=== PATIENT | male | born 1945 | race Caucasian/White ===

== ENCOUNTER → 2025-01-09 | Outpatient (BNVA) | payer OTHER, SELFPAY | END | disposition home or self-care (01) | PROVIDERS: PCP Family Medicine; Referring Provider Family Medicine; Visit Provider Urology | DX: N40.1 Benign prostatic hyperplasia with lower urinary tract symptoms (principal); N13.8 Other obstructive and reflux uropathy; R97.20 Elevated prostate specific antigen [PSA]; I10 Essential (primary) hypertension; E78.5 Hyperlipidemia, unspecified; E11.40 Type 2 diabetes mellitus with diabetic neuropathy, unspecified; J44.9 Chronic obstructive pulmonary disease, unspecified; Z95.2 Presence of prosthetic heart valve; Z80.42 Family history of malignant neoplasm of prostate; E66.9 Obesity, unspecified; Z68.38 Body mass index [BMI] 38.0-38.9, adult | CPT/HCPCS: 81003; 99202; G0463 ==

== ENCOUNTER 2025-04-01 09:47 | Outpatient (RCR) | payer OTHER, SELFPAY ==
--- NOTE | 2025-04-01 11:49 | CTCCONSULT_ITS ---
[facility] [address] [place], [place] [address] Consultation Note Date: 04/01/2025 MR#: [id number] Name: DANIELLE JOYNER : 1945 Dx: C61 Malignant neoplasm of prostate History of Present Illness: 80-year-old gentleman with elevated PSA 67.1 on 01/14/2025. Underwent biopsy at [facility] revealing prostate adenocarcinoma Group 2 and 3 Christian 7(3+4) (4+3) and Group 4 Christian score 8 (4+4) involving various areas of targeted left prostate March 12, 2025.. MRI 02/21/2025 suggested PI-RADS 5 left peripheral zone of prostate along with multiple bone lesions including right ischium and left innominate bone. Patient has PET scan ordered for staging pending. Patient is now referred to the cancer treatment center. Past Medical History: History of bladder infection COPD diabetes high blood pressure CVA skin cancers Meds. 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 Jg Faith. Social drinker non-smoker Family history. Maternal grandmother had breast cancer 1 brother had prostate cancer in his 80s. Review of Systems: Has had hayfever leaky urine memory loss nocturia shortness of breath there is mild exertion sleep problem Physical Exam: General: Well-appearing gentleman in no acute distress HEENT: Atraumatic normocephalic extraocular is intact no oral lesions no cervical or supraclavicular adenopathy CV: Chest clear to auscultation heart regular rate and rhythm ABD: Soft no urinary tenderness EXT: No signs clubbing or edema. Assessment:1. Prostate CA, group 2 3 and 4 involving bilateral prostate. PSA 67.1. 2. Possible bone mets suggested by recent MRI. 3. PET CT scan pending which we will review. 4. Have elected to start ADT, beginning with Casodex 50 mg to avoid the flare problem then Lupron injections approximately 2 weeks later.. Side effects discussed. 5. Will discuss possible locally directed therapy following PET scan completion. . Currently patient is leaning against any radiation or surgery option. 6. Thank you very much for allowing me to evaluate and manage this patient. Electronically signed by: Roderick Macias MD, DABR 04/01/2025 11:46 AM
--- NOTE | 2025-04-08 10:14 | CTCCONSULT_ITS ---
[facility] [address] [place], [place] [address] Consultation Note Date: 04/01/2025 MR#: [id number] Name: DANIELLE JOYNER : 1945 Dx: C61 Malignant neoplasm of prostate Addendum. Patient who is still undecided about choice of therapy until the PET scan results will be discussed, stated that he does not wish to see any other physicians until afterward. Electronically signed by: Roderick Macias MD, HOAD 04/08/2025 10:12 AM
== END 2025-04-28 23:59 | disposition home or self-care (01) ==
LOC: SCTC 09:47
PROVIDERS: Referring Provider Urology; Visit Provider Radiology Therapeutic Radiology
DX: C61 Malignant neoplasm of prostate (principal)
CPT/HCPCS: 99213; G0463

== ENCOUNTER → 2025-04-15 | Outpatient (CLI) | payer OTHER, SELFPAY ==
--- NOTE | 2025-04-15 09:30 | XR_ITS ---
EXAMINATION: PET/CT FUSION SKULL TO THIGH EXAM DATE AND TIME: 12/16/2024 1042 hours INDICATIONS: Diagnosis malignant neoplasm prostate this month, staging prior to treatment CTDI:vol (mGy) 12.48 DLP: (mGycm) 1294.70 PROCEDURE: 16.3 mCi FDG was administered intravenously To allow for distribution and uptake of radiotracer, the patient was allowed to rest quietly in a shielded room. Imaging was performed on an integrated 16-slice PET/CT scanner, with scanning from the skull base to the mid thigh. Serum blood glucose at the time of the injection was measured 107 mg/dL. CT scanning was performed without oral or intravenous contrast material. FINDINGS: Head and Neck: There is no davi hypermetabolism in the neck. The visualized portions of the brain are normal in appearance on CT. Chest: Non hypermetabolic 8mm pulmonary nodule left upper lobe. Abdomen and Pelvis: Non hypermetabolic 2 to 3 mm left lateral periaortic lymph nodes 5 mm left common iliac lymph node non hypermetabolic Musculoskeletal: Multiple hypermetabolic osteoblastic foci including left acetabulum left posterior iliac bone, right iliac bone, multiple vertebral bodies including T9-10, T9, T8 as well as C1 C3, C5 IMPRESSION: 8mm pulmonary nodule left upper lobe Subcentimeter left lateral periaortic and left common iliac lymphadenopathy Widespread osteoblastic metastatic disease
== END | disposition home or self-care (01) ==
PROVIDERS: PCP Urology; Referring Provider Urology; Visit Provider Urology
DX: R91.8 Other nonspecific abnormal finding of lung field (principal); R59.1 Generalized enlarged lymph nodes; C79.9 Secondary malignant neoplasm of unspecified site; C61 Malignant neoplasm of prostate
CPT/HCPCS: 78815; A9552

== ENCOUNTER → 2025-04-15 | Outpatient (BNVA) | payer OTHER, SELFPAY | END | disposition home or self-care (01) | PROVIDERS: PCP Family Medicine; Referring Provider Family Medicine; Visit Provider Urology | DX: C61 Malignant neoplasm of prostate (principal); C79.51 Secondary malignant neoplasm of bone; R97.20 Elevated prostate specific antigen [PSA]; E11.9 Type 2 diabetes mellitus without complications; I10 Essential (primary) hypertension; I25.10 Atherosclerotic heart disease of native coronary artery without angina pectoris; Z80.42 Family history of malignant neoplasm of prostate; E78.5 Hyperlipidemia, unspecified; J44.9 Chronic obstructive pulmonary disease, unspecified; Z95.2 Presence of prosthetic heart valve | CPT/HCPCS: 81003; 99212; G0463 ==

== ENCOUNTER 2025-05-08 13:15 | Outpatient (RCR) | payer OTHER, SELFPAY ==
--- NOTE | 2025-05-01 09:44 | CTCFLWUP_ITS ---
[facility] [address] [place], [place] [address] FOLLOW-UP NOTE Date: 05/01/2025 MR#: [id number] Name: DANIELLE JOYNER : 1945 Dx: C61 Malignant neoplasm of prostate Identification. Patient with elevated PSA of 67.1 3 18 25 Biopsy revealing up to group 4 CA the prostate ( 4+4) PET scan 04/15/2025 unfortunately showed widespread osteoblastic mets disease involving cervical thoracic spine as well as pelvic bones, including left acetabulum left posterior iliac bone and right iliac bone. Also nonspecific non-hypermetabolic left lateral Knight lymph node left common iliac node and pulmonary nodule left upper lobe all subcentimeter. Patient is not having any significant pain anywhere. Told patient about moving forward with Lupron injections, and the possible need to add a newer antiandrogen. For now would like to get MRI of the cervical thoracic spine so there is no sign of any impending fracture or spinal cord involvement. Patient is edentulous and may also be needing Xgeva for his bones as well. New PSA will be ordered after Lupron injection has been initiated. Patient is currently on Casodex. Electronically signed by: Roderick Macias M.D. 05/01/2025 9:42 AM
== END 2025-05-29 23:59 | disposition home or self-care (01) ==
LOC: SCTC 13:15
PROVIDERS: PCP Family Medicine; Referring Provider Family Medicine; Visit Provider Radiology Therapeutic Radiology
DX: Z51.11 Encounter for antineoplastic chemotherapy (principal); C61 Malignant neoplasm of prostate; C79.51 Secondary malignant neoplasm of bone
CPT/HCPCS: 96402; 99212; J9217; G0463

== ENCOUNTER → 2025-07-21 | Outpatient (BNVA) | payer OTHER, SELFPAY | END | disposition home or self-care (01) | PROVIDERS: PCP Family Medicine; Referring Provider Family Medicine; Visit Provider Urology | DX: C61 Malignant neoplasm of prostate (principal); I10 Essential (primary) hypertension; E11.40 Type 2 diabetes mellitus with diabetic neuropathy, unspecified; I25.10 Atherosclerotic heart disease of native coronary artery without angina pectoris; Z80.42 Family history of malignant neoplasm of prostate; E78.5 Hyperlipidemia, unspecified; J44.9 Chronic obstructive pulmonary disease, unspecified; Z95.2 Presence of prosthetic heart valve | CPT/HCPCS: 81003; 99212; G0463 ==

== ENCOUNTER 2025-07-28 09:57 | Outpatient (RCR) | payer OTHER, SELFPAY ==
--- NOTE | 2025-07-14 16:49 | CTCFLWUP_ITS ---
[facility] [address] [place], [place] [address] FOLLOW-UP NOTE Date: 07/14/2025 MR#: [id number] Name: DANIELLE JOYNER : 1945 Dx: C61 Malignant neoplasm of prostate Identification. Patient with stage IVb stated the prostate. PSA 67.1 group 4 (4+4) PSMA PET 04/15/2025 widespread osteoblastic mets including cervical thoracic spine pelvic bones. Nonspecific non-hypermetabolic left periaortic lymph node left common iliac node and pulmonary nodule left upper lobe all subcentimeter. MRI 06/25/2025 showed mets C2 and C5 sclerotic consistent with mets disease. 2.8 cm bony lesion T7 no pathological fracture. Patient has been on Casodex since March 2025 and Lupron injections since April. Patient had PSA done at [facility] and over the phone the report states that his number was 0.55. Today he feels somewhat tired and has been coughing for about 3 weeks. Has only used OTC meds for his cough. Some wheeze heard right lower lobe. A#1. Prostate CA stage IVb with widespread bony involvement. Noted on PSMA PET. #2. Currently on Casodex and Lupron with PSA having dropped from 67.1 to 0.55 today. #3. MRI reveals C2 C5 and T7, with no significant symptoms and no sign of impending fracture. #4. Made a small case for treating the C-spine area however patient prefers to wait. #5. Referral to Dr. Aguirre #6. Ordered Z-Ye 250 mg 6 days for persistence of bronchitis symptoms for 3 weeks. Electronically signed by: Roderick Macias M.D. 07/14/2025 4:46 PM
== END 2025-07-29 23:59 | disposition home or self-care (01) ==
LOC: SCTC 09:57
PROVIDERS: PCP Family Medicine; Referring Provider Family Medicine; Visit Provider Internal Medicine Hematology & Oncology
DX: C61 Malignant neoplasm of prostate (principal); C79.51 Secondary malignant neoplasm of bone; Z79.818 Long term (current) use of other agents affecting estrogen receptors and estrogen levels; J40 Bronchitis, not specified as acute or chronic
CPT/HCPCS: 99212; 99213; G0463

== ENCOUNTER 2025-08-11 13:28 | Outpatient (RCR) | payer OTHER, SELFPAY | END 2025-08-29 23:59 | disposition home or self-care (01) | LOC: SCTC 13:28 | PROVIDERS: PCP Family Medicine; Referring Provider Family Medicine; Visit Provider Internal Medicine Hematology & Oncology | DX: Z51.11 Encounter for antineoplastic chemotherapy (principal); C61 Malignant neoplasm of prostate; C79.51 Secondary malignant neoplasm of bone | CPT/HCPCS: 96402; J9217 ==

== ENCOUNTER 2025-10-13 09:42 | Outpatient (RCR) | payer OTHER, SELFPAY ==
--- NOTE | 2025-10-13 10:23 | CTCFLWUP_ITS ---
Patient: DANIELLE JOYNER : 1945 Page 2 of 2 FOLLOW UP NOTE DATE OF SERVICE: 10/13/2025 NAME: DANIELLE JOYNER ACCOUNT: [id number] : 1945 AGE: 80 INTERVAL HISTORY: Summary Patient patient is here for follow-up on his prostate cancer. Patient has started Xtandi and doing well include PSA testing. Patient was supposed to start start Zometa for his osteoblastic lesions in the bones. Unfortunately insurance has denied it I will be putting a request again as patient will b enefit by preventing fracture and healing those lesions. ONCOLOGY HISTORY: DIAGNOSIS: Malignant neoplasm of prostate [ICD10] C61 DATE OF DIAGNOSIS: 16 Mar 2025 STAGE/TNM: Stage IV prostate cancer adenocarcinoma TREATMENT HISTORY: Care?Plan Start?Date Cycle Day Intent zometa?q?30?days,?q?90?days?for?bone?mets 07/28/2025 1 90 Maintenance zometa?q?30?days,?q?90?days?for?bone?mets 10/13/2025 1 90 Palliative HISTORY OF PRESENT ILLNESS: Subjective History of Present Illness Venu Mcnair is an 80-year-old gentleman with prostate adenocarcinoma diagnosed following an elevated PSA of 67.1 on March 16, 2025. A biopsy at [facility] revealed prostate adenocarcinoma group II and III Christian 7 (3+4) and IV (4+3) and group IV Kingston 8 (4+4), involving various areas of targeted left prostate. An MRI on March 12, 2025, suggested Johny's 5 left peripheral zone of prostate along with multiple bone lesions including right ischium and left innominate bone. The patient started androgen deprivation therapy (ADT) in March with Casodex and Lupron (leuprolide depot). The cancer has responded well to Casodex. The patient's PSA has decreased significantly since starting treatment, indicating a positive response to therapy. The patient is expected to be in complete remission by next month, although bone lesions will remain but are expected to be inactive if managed properly. Patient initially was on Casodex and Lupron. Patient changed to Xtandi and Lupron The patient's overall health status appears stable, with no reported new symptoms or complications related to his prostate cancer or treatment. He has not mentioned any significant changes in his daily functioning or quality of life. Medical History - Prostate adenocarcinoma, diagnosed February 2025 - Elevated PSA (67.1) Surgical History - Prostate biopsy on March 16, 2025, revealing prostate adenocarcinoma Medications and Supplements - Casodex - Started in March, cancer has responded well, to be stopped when starting Xtandi - Lupron (leuprolide for depot) - Started in March, prevents testosterone from helping cancer grow - Side effects: muscle loss, reduces anger, softens skin - Vitamin D - Taken with food, preferably lunch or dinner - Calcium - Taken twice a day, with lunch and dinner - Taken with vitamin D, avoid coffee in the morning when taking Social History - Substance Use: Avoids coffee in the morning when taking calcium - Exercise: Advised to increase physical activity, including leg exercises while watching TV - Diet: Recommended to take vitamin D and calcium with food, preferably lunch or dinner Review of Systems General: Positive for hot flashes. Musculoskeletal: Positive for muscle loss. Objective Laboratory, Imaging, and Diagnostic Test Results - Date: March 16, 2025 - PSA: 67.1 - Prostate biopsy: Prostate adenocarcinoma - Group II and III: Christian 7 (3+4) - Group IV: Christian 8 (4+4) - Involving various areas of targeted left prostate - MRI (March 12, 2025): - Johny's 5 left peripheral zone of prostate - Multiple bone lesions including right ischium and left innominate bone OTHER MEDICAL HISTORY/CONDITIONS: ALLERGIES BLADDER ISSUES PROSTAE CA COPD DIABETES HEART MURMER HIGH BLOOD PRESSURE CVA 2009 MILD BASAL CELL SKIN CA TONSILLECTOMY DOUBLE HERNIA HEART VALVE REPLACMENT 2 YRS AGO FAMILY HISTORY: Sibling:?PROSTAE?BROTHER Cancer History:?GRANDMOTHER MATERNAL / BREAST SOCIAL 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 atorvastatin - 40 mg Daily 2. baclofen - Daily 3. fluticasone furoate - As directed 4. Fosamax - 70 mg 1 tab ONCE PER WEEK 5. losartan - 25 mg Daily 6. MEMANTINE HCL - 10 mg Daily 7. Mounjaro - 15 mL Weekly 8. pregabalin - 100 mg Three times a day 9. Renal-Ketty - Daily 10. Terazosin - 10 mg Daily 11. Trelegy Ellipta - Daily 12. Xtandi - 80 mg 2 tab Daily Medications Last Reconciled by Stephanie Villa MD on 10/13/2025 ALLERGIES: REVIEW OF SYSTEMS: A complete 14-point review of systems was performed and is negative except as noted in interval history. PHYSICAL EXAMINATION: VITAL SIGNS: Temperature?97.7, B/P?149/66, Oxygen?Saturation?93% Weight?291?lbs PAIN: 0 - No pain ECOG Performance Status: 1 - Symptomatic; ambulatory; restricted in strenuous activity GENERAL APPEARANCE: Appears well, in no apparent distress, appropriately interactive. HEENT: Normocephalic, no temporal wasting, normal conjunctiva, no scleral icterus, normal hearing, lips without lesions, neck normal range of motion. CARDIOVASCULAR: Not assessed. PULMONARY: Normal respiratory effort, no respiratory distress or use of accessory muscles, speaking in full sentences, no tachypnea. EXTREMITIES: No pedal edema or cyanosis. Patient is overall very weak SKIN: Normal skin appearance. NEUROLOGIC: Alert and oriented x4. PSHYCHIATRIC: Appropriate affect, mood normal, behavior normal, intact thought and speech. LABORATORY DATA: I have personally reviewed and interpreted each of the patient?s relevant lab tests, abnormal findings are below: Date ASSESSMENT/PLAN: Assessment and Plan Venu hinton is an 80-year-old male with metastatic prostate adenocarcinoma with bone lesions, currently on androgen deprivation therapy with good response. Metastatic prostate adenocarcinoma Assessment: Patient has biopsy-proven prostate adenocarcinoma with Christian scores 7 (3+4 and 4+3) and 8 (4+4) involving bilateral prostate. MRI revealed Johny's 5 left peripheral zone lesion with multiple bone lesions including right ischium and left innominate bone. PSA was elevated at 67.1 on March 16, 2025, but has decreased significantly on current androgen deprivation therapy with Casodex and Lupron. PET CT scan shows osteoblastic lesions Patient on Xtandi and Lupron and tolerating well Continue current therapy Labs stable Metastatic prostate cancer with osteoblastic lesions in the bones Patient is taking calcium and vitamin D twice daily Patient need Zometa for his osteoblastic lesions. - No dental clearance needed as patient has no teeth issues - Physical therapy ordered for home to help with muscle strength Start Zometa ROLAN ORDERS: Order # Description [id number] PSA + Comprehensive Metabolic Panel - 12 + CBC with Auto Diff + MD Follow Up 3 Months [id number] RETURN TO CLINIC: I reviewed the diagnosis, prognosis, and recommended treatment/procedure options with the patient (and/or their legal benefits representative), including the potential benefits, risks, side effects and alternative therapies. We also discussed the option of no treatment and the possibility of clinical trial participation, if applicable. All questions were addressed, and they demonstrated understanding. They provided informed consent to proceed with the proposed plan of care. BILLING AND COMPLIANCE: I reviewed external records from providers outside my specialty as summarized above. I spent a total of 50 minutes on this patient?s care on the day of their visit excluding time spent related to any billed procedures. This time includes time spent with the patient as well as time spent documenting in the medical record, reviewing patients records and tests, obtaining history, placing orders, communicating with other healthcare professionals, counseling the patient, family or caregiver, and/or care coordination for the diagnoses above. Electronically Signed by: Marino Aguirre MD T: 10:20 AM CC: PCP: Jimmy Edmond Referring: Jimmy Edmond This document was completed utilizing speech recognition software. Grammatical errors, random word insertions, pronoun errors, and incomplete sentences are an occasional consequence of this system due to software limitations, ambient noise, and hardware issues. Any formal questions or concerns about the content, text or information contained within the body of this dictation should be directly addressed to the provider for clarification.
== END 2025-10-29 23:59 | disposition home or self-care (01) ==
LOC: SCTC 09:42
PROVIDERS: PCP Family Medicine; Referring Provider Family Medicine; Visit Provider Internal Medicine Hematology & Oncology
DX: C61 Malignant neoplasm of prostate (principal); C79.51 Secondary malignant neoplasm of bone
CPT/HCPCS: 99212; G0463